=== PATIENT | male | born 1980 | race Caucasian/White ===

== ENCOUNTER 2021-08-02 03:06 | Inpatient (IN) | payer BC, OTHER ==
[2021-08-02] MEDS ORDERED: Heparin 5,000 UNITS/ML VIAL ONE (03:20)
[2021-08-02] MEDS ORDERED: Nitroglycerin 50 MG/250 ML BOT 250 ML ONE (03:36)
[2021-08-02] MEDS ORDERED: Heparin 10,000 UNITS/ 10 ML VIAL ONE (03:36)
[2021-08-02] MEDS ORDERED: Adenosine 6 MG/2 ML VIAL ONE (03:36)
[2021-08-02] MEDS ORDERED: Ondansetron PF 4 MG/2 ML Vial ONE (03:37)
[2021-08-02] MEDS ORDERED: Fentanyl 100 MCG/2 ML VIAL ONE (03:37)
[2021-08-02] MEDS ORDERED: Atropine Sulfate 0.4 mg/1 ml Vial ONE (03:37)
[2021-08-02] MEDS ORDERED: Lidocaine 1% (PF) 30 ML VIAL ONE ×2 (03:38→04:07)
[2021-08-02] MEDS ORDERED: Midazolam HCl 2 mg/2 ml Vial ONE (03:38)
[2021-08-02 03:39] LABS: #Basophils 0.1 10x3/uL (0.0-0.2); #Eosinphils 0.2 10x3/uL (0.0-0.5); #Monocytes 0.9 10x3/uL (0.0-1.1); #Neutrophils 6.8 10x3/uL (1.5-8.4); %Basophils 1.1 % (0.0-2.0); %Eosinophils 2.3 % (0.0-6.0); %Lymphocytes 22.4 % (18.0-47.0); %Monocytes 8.3 % (0.0-10.0); %Neutrophils 65.6 % (40.0-75.0); Hemoglobin 15.8 g/dL (13.5-17.5); Mean Corpuscular HGB CONC 34.7 g/dL (32.0-36.0); Mean Corpuscular Hemoglobin 30.4 pg (27.0-33.0); Mean Corpuscular Volume 87.5 fl (81.2-95.1); Mean Platelet Volume 10.8 fl (7.4-10.4); Platelet Count 266 10x3/uL (150-450); RBC Distribution Width 10.9 % (11.5-14.5); White Blood Cell (WBC) Count 10.3 10x3/uL (3.5-10.5)
[2021-08-02 03:53] LABS: ALT (SGPT) 22 U/L (8-55); AST (SGOT) 23 U/L (5-34); Albumin 4.4 g/dL (3.5-5.0); Alkaline Phosphatase 70 U/L (40-110); Anion Gap 13 mmol/L (10-20); BUN (Urea Nitrogen) 17 mg/dL (8.9-20.6); Bilirubin, Total 0.3 mg/dL (0.2-1.2); Calc. Creatinine Clearance 0 mL/min (70-130); Calcium 9.8 mg/dL (7.8-10.44); Carbon Dioxide 26 mmol/L (22-29); Chloride 103 mmol/L (98-107); Globulin 2.3 g/dL (2.4-3.5); Glucose 105 mg/dL (70-105); Potassium 4.2 mmol/L (3.5-5.1); Protein, Total 6.7 g/dL (6.0-8.3); Sodium 138 mmol/L (136-145)
[2021-08-02] MEDS ORDERED: Lidocaine 2 gm/D5W 500ML PREMIX BAG ONE (04:00)
[2021-08-02 04:15] LABS: CKMB 5.7 ng/mL (0-6.6)
[2021-08-02 04:35] LABS: SARS-CoV-2 NAA Rapid Test DETECTED (NotDetected)
[2021-08-02] MEDS ORDERED: TICAGRELOR 90 MG TABLET ONE (04:40)
[2021-08-02] MEDS ORDERED: Nitroglycerin 0.4 MG TAB (25 Tab Bottle) SL PRN (05:37)
[2021-08-02 05:46] VITALS: BMI 25.0
[2021-08-02] MEDS ORDERED: Sodium Chloride 0.9% 500 ML IV ONE (06:00)
[2021-08-02] MEDS ORDERED: Morphine 4 MG/ML VIAL SLOW IVP PRN (06:00)
[2021-08-02] MEDS ORDERED: FLU VACC QS2021-22(6MOS UP)/PF 60 MCG/0.5 ML SYRINGE IM ONE (06:45)
[2021-08-02] MEDS: Aspirin Chewable 81 MG TAB PO SCH (08:20)
[2021-08-02] MEDS: TICAGRELOR 90 MG TABLET PO SCH ×2 (08:20→20:16)
[2021-08-02] MEDS: Carvedilol 3.125 MG TAB PO SCH ×2 (08:21→16:59)
[2021-08-02 12:44] LABS: Free T4 (Free Thyroxine) 0.99 ng/dL (0.70-1.48); Thyroid Stimulating Hormone 1.5652 uIU/mL (0.35-4.94)
[2021-08-02 12:50] LABS: Troponin I 124.062 ng/mL (< 0.028)
[2021-08-02 14:11] LABS: Hemoglobin A1c 5.2 % (4.0-6.0)
[2021-08-02] MEDS ORDERED: Lisinopril 5 MG TAB PO SCH (16:45)
[2021-08-02 18:18] LABS: Troponin I 106.687 ng/mL (< 0.028)
[2021-08-02] MEDS: Magnesium Gluconate 500 MG TAB PO SCH (20:16)
[2021-08-02] MEDS: Atorvastatin Calcium 40 MG TAB PO SCH (20:16)
[2021-08-02 21:30] LABS: Troponin I Greater than 45.000 ng/mL (< 0.028)
[2021-08-03 04:07] LABS: #Basophils 0.1 10x3/uL (0.0-0.2); #Eosinphils 0.2 10x3/uL (0.0-0.5); #Monocytes 1.3 10x3/uL (0.0-1.1); #Neutrophils 7.9 10x3/uL (1.5-8.4); %Basophils 0.5 % (0.0-2.0); %Eosinophils 1.8 % (0.0-6.0); %Lymphocytes 20.1 % (18.0-47.0); %Monocytes 10.8 % (0.0-10.0); %Neutrophils 66.4 % (40.0-75.0); Hemoglobin 15.4 g/dL (13.5-17.5); Mean Corpuscular HGB CONC 34.1 g/dL (32.0-36.0); Mean Corpuscular Hemoglobin 30.6 pg (27.0-33.0); Mean Corpuscular Volume 89.7 fl (81.2-95.1); Platelet Count 269 10x3/uL (150-450); RBC Distribution Width 10.9 % (11.5-14.5); Red Blood Cell (RBC) Count 5.04 10x6/uL (4.32-5.72); White Blood Cell (WBC) Count 11.9 10x3/uL (3.5-10.5)
[2021-08-03 04:39] LABS: ALT (SGPT) 57 U/L (8-55); AST (SGOT) 233 U/L (5-34); Alkaline Phosphatase 56 U/L (40-110); Anion Gap 13 mmol/L (10-20); BUN (Urea Nitrogen) 12 mg/dL (8.9-20.6); Bilirubin, Total 0.9 mg/dL (0.2-1.2); Calc. Creatinine Clearance 92 mL/min (70-130); Calcium 9.9 mg/dL (7.8-10.44); Carbon Dioxide 26 mmol/L (22-29); Cardiac Risk 5.5 (Less than 4.5); Chloride 102 mmol/L (98-107); Cholesterol 186 mg/dl (< 200 Desired); Globulin 2.7 g/dL (2.4-3.5); Glucose 103 mg/dL (70-105); HDL Cholesterol 34 mg/dL (>60 Neg Risk); LDL Cholesterol, Calculated 131 mg/dL; Potassium 4.4 mmol/L (3.5-5.1); Protein, Total 6.7 g/dL (6.0-8.3); Sodium 137 mmol/L (136-145); Triglycerides 103 mg/dL (Less than 150)
[2021-08-03] MEDS ORDERED: Spironolactone 25 MG TAB PO SCH (08:00)
[2021-08-03] MEDS: TICAGRELOR 90 MG TABLET PO SCH ×2 (08:09→20:53)
[2021-08-03] MEDS: Aspirin Chewable 81 MG TAB PO SCH (08:09)
[2021-08-03] MEDS ORDERED: Lisinopril 5 MG TAB PO SCH (09:00)
[2021-08-03] MEDS: Carvedilol 3.125 MG TAB PO SCH ×2 (10:57→18:29)
[2021-08-03] MEDS: Lisinopril 2.5 MG TAB PO SCH (10:57)
[2021-08-03] MEDS ORDERED: ALBUTEROL INH PRN (16:52)
[2021-08-03] MEDS: Magnesium Gluconate 500 MG TAB PO SCH (20:53)
[2021-08-03] MEDS: Atorvastatin Calcium 40 MG TAB PO SCH (20:53)
[2021-08-04] MEDS: Lisinopril 2.5 MG TAB PO SCH (08:36)
[2021-08-04] MEDS: TICAGRELOR 90 MG TABLET PO SCH (08:36)
[2021-08-04] MEDS: Carvedilol 3.125 MG TAB PO SCH (08:36)
[2021-08-04] MEDS: Aspirin Chewable 81 MG TAB PO SCH (08:36)
[2021-08-04 10:32] VITALS: BP 113/92; TEMP 97.9
[2021-08-04] MEDS ORDERED: Rosuvastatin 20 MG TAB PO SCH (21:00)
== END 2021-08-04 11:31 | disposition home or self-care (01) | DRG 246 ==
LOC: CSHERS 03:06 → CSHIMCU 05:38 → CSHTELE 08-03 17:29
PROVIDERS: ADMIT Specialist; ATTEND Specialist
PROC: 027034Z Dilation of Coronary Artery, One Artery with Drug-eluting Intraluminal Device, Percutaneous Approach (ICD-10-PCS; principal; 2021-08-02)
PROC: 4A023N7 Measurement of Cardiac Sampling and Pressure, Left Heart, Percutaneous Approach (ICD-10-PCS; 2021-08-02)
PROC: B2111ZZ Fluoroscopy of Multiple Coronary Arteries using Low Osmolar Contrast (ICD-10-PCS; 2021-08-02)
PROC: B2151ZZ Fluoroscopy of Left Heart using Low Osmolar Contrast (ICD-10-PCS; 2021-08-02)
DX: I21.02 ST elevation (STEMI) myocardial infarction involving left anterior descending coronary artery (principal); I50.21 Acute systolic (congestive) heart failure; U07.1 COVID-19; I11.0 Hypertensive heart disease with heart failure; E78.5 Hyperlipidemia, unspecified; K21.9 Gastro-esophageal reflux disease without esophagitis; I25.5 Ischemic cardiomyopathy; E66.9 Obesity, unspecified; I25.10 Atherosclerotic heart disease of native coronary artery without angina pectoris; Z68.25 Body mass index [BMI] 25.0-25.9, adult; Z91.09 Other allergy status, other than to drugs and biological substances; Z86.16 Personal history of COVID-19; Z82.49 Family history of ischemic heart disease and other diseases of the circulatory system
CPT/HCPCS: 36415; 80053; 80061; 82553; 83036; 83090; 83695; 84439; 84443; 84484; 85025; 92941; 92978; 92979; 93005; 93010; 93306; 93458; 94760; 96374; 97139; 99152; 99153; C1725; C1753; C1874; C1887; C9606; J0153; J0461; J1644; J2001; J2250; J2405; J3010; J7050; U0002